=== PATIENT | male | born 1980 | race American Indian/Alaskan Native ===

== ENCOUNTER 2020-07-26 10:52 | Emergency (ER) | payer OTHER ==
[2020-07-26 11:20] VITALS: BP 118/62
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
== END 2020-07-26 12:14 | disposition home or self-care (01) ==
LOC: ED 10:52
DX: M54.2 Cervicalgia (principal); V49.49XA Driver injured in collision with other motor vehicles in traffic accident, initial encounter; Y93.89 Activity, other specified; Y92.488 Other paved roadways as the place of occurrence of the external cause; Y99.8 Other external cause status
CPT/HCPCS: 99281